=== PATIENT | female | born 1995 | race Caucasian/White ===

== ENCOUNTER 2017-01-04 17:14 | Emergency (ER) | payer BC ==
[~2017-01-04] VITALS: Ht 165.1 cm; Wt 66.0 kg
[~2017-01-04 17:14] MED LIST: BCPILLS PO; ESCI1TAB10 PO
[2017-01-04 17:18] VITALS: Ht 165.1 cm; Wt 66.0 kg
[2017-01-04] MEDS ORDERED: SODIUM CHLORIDE 0.9% 1000ML 2,000 ML IV STA (17:58)
[2017-01-04] MEDS ORDERED: ACETAMINOPHEN 500 MG TAB PO STA (17:58)
[2017-01-04 18:20] VITALS: O2SAT 99
[2017-01-04] MEDS ORDERED: CYAN100T PO (18:21)
[2017-01-04] MEDS ORDERED: LEVO112T2 PO (18:21)
[2017-01-04] MEDS ORDERED: CLON0.5T3 PO (18:21)
--- NOTE | 2017-01-04 18:28 | EMERGENCY ROOM VISIT NOTE ---
History Report prepared by Raissa: Rober Dow Under the Supervision of: Dr. Dimitri Galo M.D. First contact with patient: 17:43 Chief Complaint: SYNCOPE Stated Complaint: FAINTED IN CLASS, LT HAND/MOUTH NUMBNESS, HEADACHE Nursing Triage Summary: pt passed out when she stood up and fell + loc c/o FOLEY on the way here pt mouth and and tongue felt tingling and went away History of Present Illness The patient is a 21 year old female who presents to the Emergency Room with complaints of a sudden syncopal episode occurring prior to arrival. The patient states that she was in class and stood up, and then she passed out and fell. The patient denies any fevers, chills, cough, congestion, vomiting, diarrhea, chest pain, shortness of breath, and burning with urination. She states that she hit her head on the floor when she fell, and was unconscious for around a minute. She currently has a headache, and she had blurry vision afterwards. The patient denies any chance of , and her last period was two weeks ago. She denies any drug use or recent alcohol use. The patient is currently on control. Source of History: patient Onset: prior to arrival Position: other (global) Quality: other (syncopal episode) Timing: other (sudden) Associated Symptoms: + LOC, + headache, No fevers, No chills, No cough, No chest pain, No SOB, No vomiting, No diarrhea, No urinary symptoms Review of Systems See HPI for pertinent positives and negatives. A total of ten systems were reviewed and were otherwise negative. Past Medical & Surgical Medical Problems: (1) No Known Active Medical Problems Social History Smoking Status: Never Smoker Drug Use: none Marital Status: single Housing Status: lives with roommate Occupation Status: [employer] Current/Historical Medications Scheduled Control Pills ( Control Pills), 1 TAB PO DAILY Clonazepam (Klonopin), 0.25 TAB PO AMPM Cyanocobalamin (Vitamin B-12), 1 TAB PO DAILY Escitalopram Oxalate (Lexapro), 20 MG PO DAILY Levothyroxine Sodium (Synthroid), 112 MCG PO DAILY Ondasetron Odt (Zofran Odt), 4 MG SL Q6H Scheduled PRN Ibuprofen (Ibuprofen), 1 TAB PO TID PRN for Pain Allergies Coded Allergies: Iodine (Unverified Allergy, Intermediate, ANAPHYLAXIS, 01/04/17) Uncoded Allergies: IV CONTRAST (Allergy, Severe, Anaphylaxis, 10/30/14) Physical Exam Vital Signs Date Time Temp Pulse Resp B/P (MAP) Pulse Ox O2 Delivery O2 Flow Rate FiO2 01/04/17 22:53 80 16 91/54 100 01/04/17 22:07 66 12 94/56 99 Room Air 01/04/17 21:26 91 18 129/84 99 01/04/17 21:08 88 16 129/84 98 Room Air 01/04/17 20:50 89 16 116/73 99 Room Air 01/04/17 18:44 36.9 20 99 Room Air 01/04/17 18:44 78 98/65 80 113/79 83 105/77 01/04/17 18:33 77 01/04/17 18:20 99 Room Air 01/04/17 17:18 37.1 83 16 128/87 100 Room Air Physical Exam GENERAL: Awake, alert, well-appearing, in no distress HENT: Small forehead contusion. No hematoma. Neuro intact. Normocephalic. Oropharynx unremarkable. Dry mucous membranes. EYES: Normal conjunctiva. Sclera non-icteric. NECK: Supple. No nuchal rigidity. FROM. No JVD. RESPIRATORY: Clear to auscultation. CARDIAC: Regular rate, normal rhythm. Extremities warm and well perfused. Pulses equal. ABDOMEN: Soft, non-distended. No tenderness to palpation. No rebound or guarding. No masses. RECTAL: Deferred. MUSCULOSKELETAL: Chest examination reveals no tenderness. The back is symmetrical on inspection without obvious abnormality. There is no CVA tenderness to palpation. No joint edema. LOWER EXTREMITIES: Calves are equal size bilaterally and non-tender. No edema. No discoloration. NEURO: Normal sensorium. No sensory or motor deficits noted. SKIN: No rash or jaundice noted. Medical Decision & Procedures ER Provider Diagnostic Interpretation: Radiology results as stated below per my review and radiologist interpretation: HEAD WITHOUT CONTRAST (CT) CLINICAL HISTORY: 21 years-old Female presenting with headache after fall with HS. TECHNIQUE: Multidetector CT imaging of the head was performed without the use of intravenous contrast. IV contrast: None. A dose lowering technique was used consistent with the principles of ALARA (as low as reasonably achievable). COMPARISON: None. CT DOSE (mGy.cm): The estimated cumulative dose is 537.48 mGy.cm. FINDINGS: Highway Engineer topogram: Unremarkable. Ventricles and sulci normal in size. Sanya cisterna magna noted. Brain parenchyma normal in appearance with preserved marroquin-white differentiation. No mass effect or midline shift. No hemorrhage or acute territorial infarct. No extra-axial fluid collection. Partial opacification of ethmoid air cells. IMPRESSION: 1. No acute intracranial abnormality. Electronically signed by: Will Tilley M.D. 01/04/2017 10:02 PM Dictated Date/Time: 01/04/2017 10:00 PM Laboratory Results 01/04/17 00:00 Red Blood Count 4.63, Mean Corpuscular Volume 89.8, Mean Corpuscular Hemoglobin 30.9, Mean Corpuscular Hemoglobin Concent 34.4, Mean Platelet Volume 10.8, Neutrophils (%) (Auto) 60.2, Lymphocytes (%) (Auto) 31.3, Monocytes (%) (Auto) 7.0, Eosinophils (%) (Auto) 1.1, Basophils (%) (Auto) 0.3, Neutrophils # (Auto) 5.27, Lymphocytes # (Auto) 2.74, Monocytes # (Auto) 0.61, Eosinophils # (Auto) 0.10, Basophils # (Auto) 0.03 01/04/17 00:00 Test 01/04/17 00:00 01/04/17 18:20 White Blood Count 8.76 K/uL (4.8-10.8) Red Blood Count 4.63 M/uL (4.2-5.4) Hemoglobin 14.3 g/dL (12.0-16.0) Hematocrit 41.6 % (37-47) Mean Corpuscular Volume 89.8 fL (80-100) Mean Corpuscular Hemoglobin 30.9 pg (25-34) Mean Corpuscular Hemoglobin Concent 34.4 g/dl (32-36) Platelet Count 294 K/uL (130-400) Mean Platelet Volume 10.8 fL (7.4-10.4) Neutrophils (%) (Auto) 60.2 % Lymphocytes (%) (Auto) 31.3 % Monocytes (%) (Auto) 7.0 % Eosinophils (%) (Auto) 1.1 % Basophils (%) (Auto) 0.3 % Neutrophils # (Auto) 5.27 K/uL (1.4-6.5) Lymphocytes # (Auto) 2.74 K/uL (1.2-3.4) Monocytes # (Auto) 0.61 K/uL (0.11-0.59) Eosinophils # (Auto) 0.10 K/uL (0-0.5) Basophils # (Auto) 0.03 K/uL (0-0.2) RDW Standard Deviation 42.1 fL (36.4-46.3) RDW Coefficient of Variation 12.9 % (11.5-14.5) Immature Granulocyte % (Auto) 0.1 % Immature Granulocyte # (Auto) 0.01 K/uL (0.00-0.02) Anion Gap 7.0 mmol/L (3-11) Est Creatinine Clear Calc Drug Dose 101.8 ml/min Estimated GFR () 125.1 Estimated GFR (Non- 107.9 BUN/Creatinine Ratio 11.7 (10-20) Calcium Level 9.5 mg/dl (8.5-10.1) Urine Color YELLOW Urine Appearance CLEAR (CLEAR) Urine pH 5.0 (4.5-7.5) Urine Specific [place] 1.013 (1.000-1.030) Urine Protein NEG (NEG) Urine Glucose (UA) NEG (NEG) Urine Ketones NEG (NEG) Urine Occult Blood TRACE (NEG) Urine Nitrite NEG (NEG) Urine Bilirubin NEG (NEG) Urine Urobilinogen NEG (NEG) Urine Leukocyte Esterase TRACE (NEG) Urine WBC (Auto) 1-5 /hpf (0-5) Urine RBC (Auto) 0-4 /hpf (0-4) Urine Hyaline Casts (Auto) 1-5 /lpf (0-5) Urine Epithelial Cells (Auto) >30 /lpf (0-5) Urine Bacteria (Auto) NEG (NEG) Urine Test NEG (NEG) Laboratory results reviewed by me Medications Administered Medications (Trade) Dose Ordered Sig/Chika Route Start Time Stop Time Status Last Admin Dose Admin Sodium Chloride 2,000 ml @ 999 mls/hr Q2H1M STAT IV 01/04/17 17:58 01/04/17 19:58 DC 01/04/17 18:42 999 MLS/HR Acetaminophen (Tylenol Tab) 1,000 mg NOW STAT PO 01/04/17 17:58 01/04/17 18:15 DC 01/04/17 18:40 1,000 MG Sodium Chloride 1,000 ml @ 999 mls/hr Q1H1M STAT IV 01/04/17 21:09 01/04/17 22:09 DC 01/04/17 21:21 999 MLS/HR Metoclopramide HCl (Reglan Inj) 10 mg NOW STAT IV 01/04/17 21:09 01/04/17 21:11 DC 01/04/17 21:21 10 MG Diphenhydramine HCl (Benadryl Inj) 12.5 mg NOW STAT IV 01/04/17 21:09 01/04/17 21:11 DC 01/04/17 21:21 12.5 MG ECG Indication: syncope Rate (beats per minute): 72 Rhythm: normal sinus Findings: no acute ischemic change, no ectopy ED Course 174: The patient was evaluated in room A12. A complete history and physical exam was performed. 1757: Tyleno Tab 1000mg PO, Sodium Chloride 2000 ml @ 999 mls/hr IV 2106: I reevaluated the patient, and she was still having a headache, so she is going to get a CT scan. 2108: Benadryl 12.5mg IV, Reglan 10mg IV, Sodium Chloride 1000 ml @ 999 mls/hr IV 0: I reevaluated the patient. Discussed results and discharge instructions: She verbalized understanding and agreement. The patient is ready for discharge. Medical Decision I reviewed the patient's past medical history, medications, and the nursing notes as described above. Differential Diagnoses include: Orthostatic vs. Vasovagal syncope, arrhythmia, dehydration, electrolyte abnormality, . The patient is a 21-year-old woman who presents emergency department after having a syncopal episode when she stood up out of her chair in class and fell and hit the front of her forehead per history of present illness. The patient is well-appearing, in no acute distress, afebrile with stable vital signs. She has a minor frontal contusion. Otherwise she is neurologically intact. EKG unremarkable. Labs also unremarkable. Pt. initially feeling improved after IV fluids and Tylenol. However, subsequently the patient began to have a worsening headache with blurred vision. Thus, CT head was done and was negative for acute findings. Patient then feeling much improved after additional fluids and Reglan. Plan for follow-up with daily at bedtime and concussion clinic discussed with the patient. Findings and plan for follow-up reviewed with patient. Patient agreeable and d/c'd per discharge instructions. Impression Primary Impression: Syncope Additional Impression: Concussion Scribe Attestation The scribe's documentation has been prepared under my direction and personally reviewed by me in its entirety. I confirm that the note above accurately reflects all work, treatment, procedures, and medical decision making performed by me. Departure Information Dispostion Home / Self-Care Prescriptions Ondasetron Odt (ZOFRAN ODT) 4 Mg Tab 4 MG SL Q6H for Nausea, #6 TAB Prov: Dimitri Galo M.D. 01/04/17 Ibuprofen (Ibuprofen) 600 Mg Tab 1 TAB PO TID Y for Pain for 7 Days, #21 TABS Prov: Dimitri Galo M.D. 01/04/17 Referrals No Doctor, Assigned (PCP) Forms HOME CARE DOCUMENTATION FORM, IMPORTANT VISIT INFORMATION Patient Instructions ED Concussion, ED Dizziness Syncope Fainting W Pre, My [facility] Additional Instructions Please follow up with S as well as with the concussion clinic in the next 1-3 days for re-evaluation. [facility] CONCUSSION [facility]: [phone] [place] [address] Your fainting episode was possibly due to mild dehydration and you likely suffered a mild concussion. Otherwise, your exam, EKG, lab results, and CT scan of your head did not show signs of an emergent condition at this time. Ibuprofen and acetaminophen for pain as needed. Zofran as needed for nausea. Drink plenty of fluids to ensure hydration. Avoid sensory stimulus to minimize concussion symptoms. Return to the emergency department for worsening symptoms as described in the accompanying instructions. Problem Qualifiers
[2017-01-04 18:44] VITALS: TEMP 36.9
[2017-01-04 18:51] LABS: BASO % 0.3 %; BASO ABS # 0.03 K/uL (0-0.2); COMPLETE YES; EOS % 1.1 %; HEMATOCRIT 41.6 % (37-47); IG% 0.1 %; LYMPH % 31.3 %; LYMPH ABS # 2.74 K/uL (1.2-3.4); MEAN CELL VOLUME 89.8 fL (80-100); MEAN CORPUSCULAR HEMOGLOBIN 30.9 pg (25-34); MEAN CORPUSCULAR HGB CONC 34.4 g/dl (32-36); MEAN PLATELET VOLUME 10.8 fL (7.4-10.4); NEUT % 60.2 %; PLATELET COUNT 294 K/uL (130-400); RED BLOOD COUNT 4.63 M/uL (4.2-5.4); WHITE BLOOD COUNT 8.76 K/uL (4.8-10.8)
[2017-01-04 19:12] LABS: BUN/CREATININE RATIO 11.7 (10-20); CALCIUM 9.5 mg/dl (8.5-10.1); CREATININE 0.78 mg/dl (0.60-1.20); POTASSIUM 3.7 mmol/L (3.5-5.1)
[2017-01-04 19:25] LABS: URINE APPEARANCE CLEAR (CLEAR); URINE BILIRUBIN NEG (NEG); URINE COLOR YELLOW; URINE EPITHELIAL CELL AUTO >30 /lpf (0-5); URINE NITRITE NEG (NEG); URINE SPECIFIC GRAVITY 1.013 (1.000-1.030); UROBILINOGEN NEG (NEG); ZZUR CULT IF INDIC CLEAN CATCH NO
[2017-01-04 19:33] LABS: MANUAL MICROSCOPIC REQUIRED? NO; REVIEW REQ? NO
[2017-01-04] MEDS ORDERED: SODIUM CHLORIDE 0.9% 1000ML 1,000 ML IV STA (21:09)
[2017-01-04] MEDS ORDERED: DiphenhydrAMINE HCL 50 MG/ML VIAL IV STA (21:09)
[2017-01-04] MEDS ORDERED: METOCLOPRAMIDE HCL INJ 5 MG/ML 2 ML VIAL IV STA (21:09)
--- NOTE | 2017-01-04 22:03 | DIAGNOSTIC IMAGING REPORT ---
HEAD WITHOUT CONTRAST (CT) CLINICAL HISTORY: 21 years-old Female presenting with headache after fall with HS. TECHNIQUE: Multidetector CT imaging of the head was performed without the use of intravenous contrast. IV contrast: None. A dose lowering technique was used consistent with the principles of ALARA (as low as reasonably achievable). COMPARISON: None. CT DOSE (mGy.cm): The estimated cumulative dose is 537.48 mGy.cm. FINDINGS: Clinical Services Assistant topogram: Unremarkable. Ventricles and sulci normal in size. Sanya cisterna magna noted. Brain parenchyma normal in appearance with preserved marroquin-white differentiation. No mass effect or midline shift. No hemorrhage or acute territorial infarct. No extra-axial fluid collection. Partial opacification of ethmoid air cells. IMPRESSION: 1. No acute intracranial abnormality. Electronically signed by: Will Tilley M.D. 01/04/2017 10:02 PM Dictated Date/Time: 01/04/2017 10:00 PM
[2017-01-04] MEDS ORDERED: MTR/600 PO (22:24)
[2017-01-04] MEDS ORDERED: ONDA4TAB10 SL (22:28)
[2017-01-04] MEDS ORDERED: LABETALOL HCL 100 MG TAB PO ONE (22:30)
[2017-01-04 22:53] VITALS: BP 91/54; PULSE 80; O2SAT 100
== END 2017-01-04 22:54 | disposition home or self-care (01) ==
LOC: C.EDB 17:18 → C.EDA 22:54
DX: R55 Syncope and collapse (principal); S06.0X9A Concussion with loss of consciousness of unspecified duration, initial encounter; W18.39XA Other fall on same level, initial encounter; W22.8XXA Striking against or struck by other objects, initial encounter